=== PATIENT | female | born 1985 | race Caucasian/White ===

== ENCOUNTER 2022-09-25 20:01 | Emergency (ER) | payer MEDICAID, SELFPAY ==
[2022-09-25 20:06] VITALS: BP 120/56; PULSE 77; RESP 16; TEMP 36.7; O2SAT 100
--- NOTE | 2022-09-25 20:45 | ED.GENADUL_ITS ---
Discharge Plan Disposition Patient Disposition: Home Condition: Improving Discharge Details Clinical Impression: Insect bites Primary Care Provider: Catherine Morales ED Provider: Dipesh León Home Meds and New Rx's Prescriptions: New doxycycline hyclate 100 mg capsule 100 mg PO BID 7 Days Qty: 14 0RF Discharge Instructions Additional Instructions: May apply bacitracin or similar [id number] triple antibiotic to lesions twice daily. Please take antibiotics as prescribed for 1 week's time. Return to the emergency department for any acute concerns. Discharge Data Discharge Date/Time-TO BE ENTERED AT DEPARTURE: 09/25/22 20:53 Medical Decision Making 37-year-old female states she was bitten by spiders while cleaning at her workplace. She now has a number of lesions on her primarily her upper extremity. They appear to be consistent with insect bites and may be developing superinfection. We will treat with a course of doxycycline and topical antibiotic. She is stable and appropriate for discharge to home. Sign Out No HPI General Mode of arrival: ambulatory . Date/Time Provider Initiated Documentation: 09/25/22 20:38 . Limitations to Documentation: no limitations . Information obtained by: patient . History of Present Illness 37 year old F presents to the emergency department with the chief complaint of Infected bites, described as mild, Quality is described as constant, and is localized to the face, left, right and upper extremity. Patient reports no radiation. Patient started experiencing this day(s) and it has been constant. No relieving factors improve symptom(s), No exacerbating factors reported . Patient notes rash. Patient did receive the following treatments prior to arrival, none Related Data Home Medications Medication Instructions Recorded Confirmed doxycycline hyclate 100 mg capsule 100 mg PO BID 7 days #14 caps 09/25/22 Previous Rx's Medication Instructions Recorded doxycycline hyclate 100 mg capsule 100 mg PO BID 7 days #14 caps 09/25/22 General Stated Complaint: AnimalBite BONNIE: 4 Review of Systems Narrative: No other complaints. No fever. 4 systems reviewed and otherwise negative PFSH All Active Problems (Updated 09/25/22 @ 20:48 by Dipesh León MD) Insect bites (Acute) Social History Smoking risk assessment performed?: No Do you feel safe at home: Yes Do you feel safe in your relationship?: Yes Exam Narrative Exam Narrative: GEN: awake, alert, oriented 3. Pleasant, well groomed, interactive. HEAD: Normocephalic, atraumatic ENT: Mucous membranes moist, oropharynx unremarkable, External ear exam unremarkable EYES: PERRL, EOMI NECK: Full ROM, no TWAN, no menigismus CHEST/RESP: Nontender, clear to auscultation bilateral, no wheeze/rhonchi/rales CARDIOVASCULAR: RRR, no murmur, rub linda. 2+ Rad pulse bilateral EXT: Full ROM, no edema, erythematous lesions measuring approximately 7 to 8 mm on the hands and upper extremity and face. Some are excoriated and unroofed. There is no surrounding fluctuance. Neuro: Grossly normal neurologic exam, conversant, interactive. Psych: Speech fluent, thoughts congruent, affect normal Course Vital Signs Vital signs: Vital Signs Temperature 36.7 C 09/25/22 20:06 Pulse 77 09/25/22 20:06 Respiratory Rate 16 09/25/22 20:06 Blood Pressure 120/56 L 09/25/22 20:06 Pulse Oximetry 100 09/25/22 20:06 Temperature 36.7 C 09/25/22 20:06 Temperature Source Oral 09/25/22 20:06 Pulse 77 09/25/22 20:06 Respiratory Rate 16 09/25/22 20:06 Respiratory Effort 09/25/22 20:10 Blood Pressure 120/56 L 09/25/22 20:06 Blood Pressure Position Sitting 09/25/22 20:06 Pulse Oximetry 100 09/25/22 20:06 Oxygen Delivery Method Room Air 09/25/22 20:06 Oxygen Flow Rate 0 09/25/22 20:06 Pain Level 6 09/25/22 20:06
== END 2022-09-25 20:53 | disposition home or self-care (01) ==
PROVIDERS: Emergency Provider Emergency Medicine; PCP Physician Assistant
DX: S00.86XA Insect bite (nonvenomous) of other part of head, initial encounter (principal); S60.562A Insect bite (nonvenomous) of left hand, initial encounter; S60.561A Insect bite (nonvenomous) of right hand, initial encounter; W57.XXXA Bitten or stung by nonvenomous insect and other nonvenomous arthropods, initial encounter
CPT/HCPCS: 99283